=== PATIENT | female | born 1945 | race Caucasian/White ===

== ENCOUNTER 2018-07-06 15:08 | Emergency (ER) | payer OTHER, MEDICARE ==
[~2018-07-06] VITALS: Ht 165.1 cm; Wt 81.7 kg
[2018-07-06] MEDS ORDERED: METF500 (15:15)
[2018-07-06] MEDS ORDERED: OXYB5 (15:16)
[2018-07-06] MEDS ORDERED: METO5A PO (15:18)
[2018-07-06] MEDS ORDERED: Bentyl20 MG (15:18)
[2018-07-06] MEDS ORDERED: TRAZ100 PO (15:18)
[2018-07-06] MEDS ORDERED: METF500C PO (15:18)
[2018-07-06] MEDS ORDERED: Prozac20 MG (15:19)
[2018-07-06] MEDS ORDERED: ELIQUIS5 MG PO (15:20)
[2018-07-06] MEDS ORDERED: Bactrim 400-801 EACH PO (15:20)
[2018-07-06] MEDS ORDERED: AMLO5 PO (15:20)
[2018-07-06] MEDS ORDERED: Zanaflex4 M1 PO (15:20)
[2018-07-06] MEDS ORDERED: Prinivil10 MG PO (15:21)
[2018-07-06] MEDS ORDERED: Percocet 5-3251 EACH PO (16:07)
== END 2018-07-06 17:35 | disposition home or self-care (01) ==
LOC: ER 15:08
DX: S80.02XA Contusion of left knee, initial encounter (principal); S90.32XA Contusion of left foot, initial encounter; S00.01XA Abrasion of scalp, initial encounter; V59.9XXA Occupant (driver) (passenger) of pick-up truck or van injured in unspecified traffic accident, initial encounter; E11.9 Type 2 diabetes mellitus without complications
CPT/HCPCS: 29505; 70450; 73562-LT; 73630; 90471; 93005; 93010; 99285-25